=== PATIENT | female | born 1940 | race American Indian/Alaskan Native ===

== ENCOUNTER 2017-02-25 17:22 | Emergency (ER) | payer MEDICARE, BC ==
[2017-02-25 17:22] VITALS: BMI 25.9
[2017-02-25 17:30] VITALS: O2SAT 99
[2017-02-25] MEDS ORDERED: Sodium Chloride 0.9% 1,000 ML IV ONE (17:51)
--- NOTE | 2017-02-25 17:53 | C.PDOC ---
History Of Present Illness <NashJaRosemary L - Last Filed: 02/25/17 19:05> <Nay Westfall - Last Filed: 02/25/17 21:48> 76 year old female, with past medical history of diverticulosis, diabetes and hypertension, presents to emergency department with complaint of left sided abdominal pain, worse in lower area, ongoing for 8 days. Patient states she was seen by Dr. Nash 2 days ago, given antibiotics for UTI and abdomen, but notes she continues to have pain. She is taking Bactrim and Flagyl. Patient reports nausea and loose stools, non-bloody. Patient reports she called Dr. Nash today, who prompted ER visit. Denies fever, chills, vomiting, or other associated symptoms. (Rosemary Cao) History Per: Patient History/Exam Limitations: no limitations Onset/Duration Of Symptoms: Days Location Of Pain/Discomfort: LUQ, LLQ Radiation Of Pain To:: None Quality Of Discomfort: "Pain" Associated Symptoms: Nausea, Other (loose stools). denies: Fever, Vomiting, Constipation Recent travel outside of the [place]: No <NashRosemary L - Last Filed: 02/25/17 19:05> <Nay Westfall - Last Filed: 02/25/17 21:48> Time Seen by Provider: 02/25/17 17:37 Chief Complaint (Nursing): Abdominal Pain Past Medical History Reviewed: Historical Data, Nursing Documentation, Vital Signs - Medical History PMH: Diabetes, Diverticulitis, HTN, Osteoporosis Surgical History: Cholecystectomy Family History: States: Unknown Family Hx - Social History Hx Tobacco Use: No Hx Alcohol Use: No Hx Substance Use: No - Immunization History Hx Tetanus Toxoid Vaccination: No Hx Influenza Vaccination: No Hx Pneumococcal Vaccination: Yes <NashRosemary L - Last Filed: 02/25/17 19:05> Vital Signs: Last Vital Signs Temp 97.5 F L 02/25/17 17:26 Pulse 92 H 02/25/17 17:26 Resp 18 02/25/17 17:26 BP 160/81 H 02/25/17 17:26 Pulse Ox 99 02/25/17 19:05 Review Of Systems Constitutional: Negative for: Fever, Chills Cardiovascular: Negative for: Chest Pain, Palpitations Respiratory: Negative for: Cough, Shortness of Breath Gastrointestinal: Positive for: Nausea, Abdominal Pain, Other (loose stools). Negative for: Vomiting Genitourinary: Negative for: Dysuria Musculoskeletal: Negative for: Neck Pain, Back Pain Skin: Negative for: Rash Neurological: Negative for: Headache, Dizziness <Rosemary Cao Teresa Last Filed: 02/25/17 19:05> Physical Exam - Physical Exam Appears: Non-toxic, No Acute Distress Skin: Normal Color, Warm, Dry Head: Atraumatic, Normacephalic Eye(s): bilateral: Normal Inspection, EOMI Oral Mucosa: Moist Neck: Normal ROM Chest: Symmetrical Cardiovascular: Rhythm Regular Respiratory: Normal Breath Sounds, No Rales, No Rhonchi, No Wheezing Gastrointestinal/Abdominal: Soft, Tenderness (LLQ), No Mass, No Distention, No Guarding, No Rebound, No Ascites Back: Normal Inspection, No CVA Tenderness Extremity: Bilateral: Atraumatic, Normal Color And Temperature, Normal ROM Neurological/Psych: Oriented x3, Normal Speech Gait: Steady <Rosemary Cao - Last Filed: 02/25/17 19:05> ED Course And Treatment - Laboratory Results Result Diagrams: 02/25/17 18:10 02/25/17 18:10 Lab Interpretation: Abnormal O2 Sat by Pulse Oximetry: 99 (room air) Pulse Ox Interpretation: Normal <Rosemary Cao Teresa Last Filed: 02/25/17 19:05> - Laboratory Results Result Diagrams: 02/25/17 18:10 02/25/17 18:10 <Nay Westfall - Last Filed: 02/25/17 21:48> Progress <Rosemary Cao - Last Filed: 02/25/17 19:05> <Nay Westfall - Last Filed: 02/25/17 21:48> - Re-Evaluation Re-evaluation Note: 02/25/17 21:48 APPEARS COMFORTABLE NAD. NO ABD PAIN. TOLERATING PO. PENDING CT REPORT (Nay Westfall ) Medical Decision Making <Rosemary Cao - Last Filed: 02/25/17 19:05> <Nay Westfall - Last Filed: 02/25/17 21:48> Medical Decision Making: Plan: * CT abd/pelvis, bloodwork, UA * Pepcid, Zofran, morphine, IVFs * Reassess Progress Notes: 183 CBC shows mild leukocytosis 13.2 and CMP shows renal insuffiency, no other abnormality Case signed over to Dr Westfall, pending labs, CT A/P, reeval and dispo (Rosemary Cao) Disposition - Disposition Disposition Time: 19:00 - POA Present On Arrival: None <Rosemary Cao - Last Filed: 02/25/17 19:05> <Nay Westfall - Last Filed: 02/25/17 21:48> - Disposition Condition: STABLE Forms: [employer] (Filipino) - Clinical Impression Clinical Impression: LLQ abdominal pain - 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 - Scribe Statement The provider has reviewed the documentation as recorded by the Scribe <Rosemary Cao - Last Filed: 02/25/17 19:05> <Nay Westfall - Last Filed: 02/25/17 21:48> - Scribe Statement Satish Carl All medical record entries made by the Scribe were at my direction and personally dictated by me. I have reviewed the chart and agree that the record accurately reflects my personal performance of the history, physical exam, medical decision making, and the department course for this patient. I have also personally directed, reviewed, and agree with the discharge instructions and disposition. (Rosemary Cao) Physician Patient Turnover Patient Signed Over To: Nay Westfall Handoff Comments: pending UA, CT abd/pelvis, re-eval and dispo <Rosemary Cao - Last Filed: 02/25/17 19:05>
[2017-02-25] MEDS ORDERED: Iohexol 240 (50 ml) PO ONE (18:00)
[2017-02-25 18:16] LABS: BASO # 0.2 K/uL (0.0-0.2); BASO % 1.3 % (0.0-2.0); EOS % 0.2 % (0.0-4.0); HEMATOCRIT 33.6 % (34.0-47.0); LYMPH # 1.8 K/uL (1.0-4.3); LYMPH % 13.6 % (20.0-40.0); MEAN CELL VOLUME 85.6 fL (81.0-99.0); MEAN CORPUSCULAR HGB CONC 33.9 g/dL (33.0-37.0); MEAN PLATELET VOLUME 7.1 fL (7.2-11.7); MONO # 0.8 K/uL (0.0-0.8); MONO % 6.4 % (0.0-10.0); NRBC % 0.1 % (0.0-2.0); RED CELL DISTRIBUTION WIDTH 13.1 % (11.5-14.5)
[2017-02-25 18:20] LABS: WHITE BLOOD COUNT 13.2 K/uL (4.8-10.8)
[2017-02-25 18:22] LABS: POTASSIUM 4.1 mmol/L (3.6-5.2)
[2017-02-25 18:24] LABS: BILIRUBIN,TOTAL 0.4 mg/dL (0.2-1.3)
[2017-02-25 18:25] LABS: ALB/GLOB RATIO 0.9 (1.0-2.1); CALCIUM 10.5 mg/dl (8.6-10.4); TOTAL PROTEIN 8.6 g/dL (6.3-8.3)
[2017-02-25] MEDS ORDERED: Sodium Chloride 0.9% 1,000 ML ONE (18:37)
[2017-02-25 19:07] LABS: RBC URINE 1 /hpf (0-3); URINE BACTERIA RARE (<OCC); URINE BILIRUBIN NEGATIVE (NEGATIVE); URINE BLOOD NEGATIVE (NEGATIVE); URINE COLOR Yellow (YELLOW); URINE GLUCOSE (UA) NORMAL (Normal); URINE KETONE NEGATIVE (NEGATIVE); URINE PROTEIN NEGATIVE (NEGATIVE); URINE UROBILINOGEN NORMAL mg/dL (0.2-1.0); WBC URINE 2 /hpf (0-5)
[2017-02-25 19:10] LABS: URINE LEUKOCYTE ESTERASE TRACE Leu/uL (Negative)
[2017-02-25] MEDS ORDERED: Iohexol 240 (50 ml) ONE (19:14)
--- NOTE | 2017-02-25 21:53 | CT ---
EXAM: CT Abdomen and Pelvis With Intravenous Contrast EXAM DATE/TIME: 02/25/2017 6:00 PM CLINICAL HISTORY: 76 years old, female; Pain; Abdominal pain; Flank; Left upper quadrant (luq); Additional info: Llq abd painn TECHNIQUE: Axial computed tomography images of the abdomen and pelvis with intravenous contrast. All CT scans at this facility use one or more dose reduction techniques, viz.: automated exposure control; ma/kV adjustment per patient size (including targeted exams where dose is matched to indication; i.e. head); or iterative reconstruction technique. Coronal and sagittal reformatted images were created and reviewed. CONTRAST: 100 mL of OMNIPAQUE 300 administered intravenously. COMPARISON: Prior images are not available for review. Correlation is made with a report dated 09/11/14 FINDINGS: Lower thorax: Heart size is normal. There are coronary artery calcifications. There are calcifications in the thoracic aortic wall. There is minimal atelectasis and scarring at the lung bases. ABDOMEN: Liver: There is a small granuloma in the liver. Gallbladder and bile ducts: Gallbladder is absent.There is prominence of the common duct. Pancreas: Pancreas is mildly atrophic. Spleen: Spleen is unremarkable. There is an accessory spleen in the left upper quadrant. Adrenals: There is bilateral adrenal thickening. Kidneys and ureters: There are bilateral renal cysts.There is a nonobstructing right renal stone. There is no pelvocaliectasis or ureterectasis. Stomach and bowel: Stomach is almost empty. Rotation is normal. There is contrast in much of the small bowel. There is no small bowel obstruction. Terminal ileum is unremarkable. Appendix is unremarkable. There is extensive colonic diverticulosis. There is mild inflammation and edema about the proximal descending colon. There is mild inflammation and edema around the proximal sigmoid colon. Appendix: See stomach and bowel PELVIS: Bladder: unremarkable Reproductive: There is prominence of the uterus for patient's age. Contours are mildly nodular. There are no adnexal masses. ABDOMEN and PELVIS: Intraperitoneal space: There is no significant fluid.There is no free air. Bones/joints: There are degenerative changes in the osseus structures. Soft tissues: There is a small fat containing umbilical hernia. Vasculature: There are vascular calcifications. There are calcified phleboliths. Lymph nodes: There is shotty mesenteric adenopathy. IMPRESSION: Extensive colonic diverticulosis with early proximal descending colon and proximal sigmoid diverticulitis, no perforation or abscess; no acute solid visceral abnormality; possible fibroid uterus Additional findings as described above.
[2017-02-25] MEDS ORDERED: Oxycodone/Acetaminophen 5/325 mg Tab PO STA (22:10)
[2017-02-25 22:19] VITALS: BP 154/88; PULSE 93; RESP 20; TEMP 98.1
[2017-02-25] MEDS ORDERED: Oxycodone/Acetaminophen 5/325 mg Tab ONE (22:23)
== END 2017-02-25 22:28 | disposition home or self-care (01) ==
LOC: C.ER 17:22
DX: R10.32 Left lower quadrant pain (principal); K57.92 Diverticulitis of intestine, part unspecified, without perforation or abscess without bleeding
CPT/HCPCS: 74176; 80053; 81001; 85025; 87086; 96361; 96374; 96375; 99284; J2270; J2405; J7040; Q9966